=== PATIENT | male | born 1960 | race Caucasian/White ===

== ENCOUNTER 2023-07-15 11:45 | Emergency (ER) | payer OTHER ==
[~2023-07-15] VITALS: Ht 172.7 cm; Wt 93.0 kg
[2023-07-15 11:56] VITALS: BP_SYST 166; PULSE 83; RESP 18; TEMP 98.3; O2SAT 100
[2023-07-15] MEDS ORDERED: KETOROLAC TROMETHAMINE 60 MG/2 ML VIAL IM ONE (14:45)
[2023-07-15] MEDS ORDERED: predniSONE 20 MG TABLET PO ONE (14:45)
[2023-07-15] MEDS ORDERED: TRAM50TA2 PO (14:47)
[2023-07-15] MEDS ORDERED: IBUP-1969 PO (14:47)
[2023-07-15] MEDS ORDERED: PRED20TA PO (14:47)
[2023-07-15 15:16] VITALS: BP_SYST 166; PULSE 83; RESP 18; TEMP 98.3; O2SAT 100
== END 2023-07-15 15:16 | disposition home or self-care (01) ==
LOC: SED 11:45
DX: M17.12 Unilateral primary osteoarthritis, left knee (principal)
CPT/HCPCS: 99283; 73564; 96372; J7512; J1885